=== PATIENT | female | born 1985 | race Hispanic/Latino ===

== ENCOUNTER 2021-09-12 21:19 | Inpatient (IN) | payer OTHER, SELFPAY ==
[2021-09-12] MEDS ORDERED: hydrALAZINE 20 MG/ML VIAL SLOW IVP PRN (21:52)
[2021-09-13] MEDS ORDERED: Bicitra 30 ML UDCUP PO PRN (00:08)
[2021-09-13] MEDS ORDERED: Acetaminophen 500 MG TAB PO PRN (00:08)
[2021-09-13] MEDS ORDERED: Ondansetron PF 4 MG/2 ML Vial IVP PRN ×3 (00:08→05:14)
[2021-09-13] MEDS ORDERED: Famotidine/PF 20 mg/2ml Vial SLOW IVP PRN (00:08)
[2021-09-13] MEDS ORDERED: Promethazine HCl 25 MG/ML VIAL IM PRN ×2 (00:08→02:12)
[2021-09-13] MEDS ORDERED: hydrALAZINE 20 MG/ML VIAL SLOW IVP PRN ×2 (00:08→05:14)
[2021-09-13] MEDS ORDERED: ceFAZolin 2 GM/Dextrose 50 ML IVPB ONE (00:13)
[2021-09-13] MEDS ORDERED: ceFAZolin 2 GM/Dextrose 50 ML 2 GM in Premix Bag 1 BAG IVPB SCH (00:15)
[2021-09-13 00:25] VITALS: BMI 42.1
[2021-09-13 00:33] LABS: Hemoglobin 12.9 g/dL (12.0-15.5); Mean Corpuscular HGB CONC 34.3 g/dL (32.0-36.0); Mean Corpuscular Hemoglobin 30.9 pg (27.0-33.0); Mean Platelet Volume 12.4 fl (7.4-10.4); Platelet Count 221 10x3/uL (150-450); RBC Distribution Width 13.6 % (11.5-14.5); Red Blood Cell (RBC) Count 4.18 10x6/uL (3.90-5.03); White Blood Cell (WBC) Count 9.6 10x3/uL (3.5-10.5)
[2021-09-13] MEDS ORDERED: Azithromycin 500 MG VIAL ONE (00:41)
[2021-09-13] MEDS ORDERED: Fentanyl 100 MCG/2 ML VIAL ONE (00:46)
[2021-09-13] MEDS ORDERED: Morphine PF 10 MG/10 ML VIAL ONE (00:46)
[2021-09-13] MEDS ORDERED: Lactated Ringer's 1,000 ML IV SCH (01:00)
[2021-09-13] MEDS ORDERED: ePHEDrine Sulfate 50 MG/10 ML VIAL ONE (01:03)
[2021-09-13 01:08] LABS: Syphilis Antibody Nonreactive (Nonreactive); Syphilis Antibody Index 0.06 S/CO (<1.00 Non-Reactive)
[2021-09-13 01:09] LABS: Hep B Surf Ag Non-Reactive S/CO (NonReactive)
[2021-09-13 01:17] LABS: HBSAg Index 0.14 S/CO (0-0.99)
[2021-09-13] MEDS ORDERED: Ondansetron PF 4 MG/2 ML Vial ONE (01:18)
[2021-09-13] MEDS ORDERED: Promethazine HCl 25 MG/ML VIAL ONE (01:18)
[2021-09-13] MEDS ORDERED: Oxytocin 10 UNITS/ML VIAL ONE (01:18)
[2021-09-13] MEDS ORDERED: Ketorolac Tromethamine 30 MG/ML VIAL ONE (01:18)
[2021-09-13] MEDS ORDERED: HYDROmorphone 2 MG/ML VIAL SLOW IVP PRN (02:12)
[2021-09-13] MEDS ORDERED: Ketorolac Tromethamine 30 MG/ML VIAL IVP PRN (02:12)
[2021-09-13] MEDS ORDERED: Moisturizing Cream (Eucerin) 113 GM JAR TOP PRN (02:12)
[2021-09-13] MEDS ORDERED: Promethazine HCl 25 MG SUPP PR PRN (02:12)
[2021-09-13] MEDS ORDERED: diphenhydrAMINE 50 MG/ML VIAL IVP PRN (02:12)
[2021-09-13] MEDS ORDERED: Meperidine HCl/PF 25 MG/ML VIAL SLOW IVP PRN (02:12)
[2021-09-13] MEDS ORDERED: Naloxone HCl 0.4 mg/ml Vial IVP PRN ×2 (02:12)
[2021-09-13] MEDS ORDERED: Naloxone HCl 0.4 mg/ml Vial IV PRN (02:12)
[2021-09-13] MEDS ORDERED: Fentanyl 100 MCG/2 ML VIAL SLOW IVP PRN (02:12)
[2021-09-13] MEDS ORDERED: Ondansetron HCl/PF 4 MG/2 ML Vial IVP PRN (02:12)
[2021-09-13] MEDS ORDERED: Communication Order-Pharmacy FS SCH (02:15)
[2021-09-13 04:35] LABS: SARS-CoV-2 NAA Rapid Test Not Detected (NotDetected)
[2021-09-13] MEDS ORDERED: Boostrix 0.5 ML (Tdap) VIAL IM ONE (05:14)
[2021-09-13] MEDS ORDERED: Simethicone Chewable 80 MG TAB PO PRN (05:14)
[2021-09-13] MEDS ORDERED: Lanolin Ointment 7 GM TUBE TOP PRN (05:14)
[2021-09-13] MEDS ORDERED: Misoprostol 200 MCG TAB PR PRN (05:14)
[2021-09-13] MEDS ORDERED: NS w/ Oxytocin 30 units 500 ML ONE (05:20)
[2021-09-13] MEDS ORDERED: NS w/ Oxytocin 30 units 500 ML IV SCH (06:00)
[2021-09-13] MEDS: Ferrous Sulfate 325 MG TAB PO SCH ×2 (07:57→21:26)
[2021-09-13] MEDS: Prenatal Vitamin 1 TAB PO SCH (07:57)
[2021-09-13] MEDS ORDERED: HYDROcodone/Acetaminophen 5/325 mg Tablet PO PRN (15:18)
[2021-09-13] MEDS: ceFAZolin 2 GM/Dextrose 50 ML 2 GM in Premix Bag 1 BAG IVPB SCH (16:59)
[2021-09-13] MEDS: metroNIDAZOLE 500 MG in Premix Bag 1 BAG IVPB SCH (16:59)
[2021-09-14] MEDS: metroNIDAZOLE 500 MG in Premix Bag 1 BAG IVPB SCH ×4 (00:35→23:52)
[2021-09-14] MEDS: HYDROcodone/Acetaminophen 5/325 mg Tablet PO PRN ×2 (00:35→20:23)
[2021-09-14] MEDS: ceFAZolin 2 GM/Dextrose 50 ML 2 GM in Premix Bag 1 BAG IVPB SCH ×4 (00:36→23:52)
[2021-09-14 03:49] LABS: Hemoglobin 10.7 g/dL (12.0-15.5); Mean Corpuscular HGB CONC 34.5 g/dL (32.0-36.0); Mean Corpuscular Hemoglobin 31.2 pg (27.0-33.0); Mean Corpuscular Volume 90.4 fl (81.6-98.3); Mean Platelet Volume 12.2 fl (7.4-10.4); Platelet Count 179 10x3/uL (150-450); RBC Distribution Width 13.8 % (11.5-14.5); Red Blood Cell (RBC) Count 3.43 10x6/uL (3.90-5.03); White Blood Cell (WBC) Count 9.6 10x3/uL (3.5-10.5)
[2021-09-14] MEDS: Ibuprofen 800 MG TAB PO SCH ×3 (05:31→21:27)
[2021-09-14] MEDS: Ferrous Sulfate 325 MG TAB PO SCH ×2 (08:29→20:20)
[2021-09-14] MEDS: Prenatal Vitamin 1 TAB PO SCH (08:31)
[2021-09-15] MEDS: Ibuprofen 800 MG TAB PO SCH (05:18)
[2021-09-15 07:22] VITALS: BP 102/54; TEMP 98.4
[2021-09-15] MEDS: Ferrous Sulfate 325 MG TAB PO SCH (08:18)
[2021-09-15] MEDS: metroNIDAZOLE 500 MG in Premix Bag 1 BAG IVPB SCH (08:26)
[2021-09-15] MEDS: ceFAZolin 2 GM/Dextrose 50 ML 2 GM in Premix Bag 1 BAG IVPB SCH (08:26)
[2021-09-15] MEDS: Prenatal Vitamin 1 TAB PO SCH (09:12)
== END 2021-09-15 10:08 | disposition home or self-care (01) | DRG 788 ==
LOC: CSHLD/OP 21:19 → CSHLD 09-13 00:25 → CSHPP 09-13 04:55
PROVIDERS: ADMIT Family Medicine; ATTEND Family Medicine
PROC: 10D00Z1 Extraction of Products of Conception, Low, Open Approach (ICD-10-PCS; principal; 2021-09-13)
PROC: 0UN90ZZ Release Uterus, Open Approach (ICD-10-PCS; 2021-09-13)
DX: O34.211 Maternal care for low transverse scar from previous cesarean delivery (principal); N73.6 Female pelvic peritoneal adhesions (postinfective); O99.892 Other specified diseases and conditions complicating childbirth; Z37.0 Single live birth; Z3A.38 38 weeks gestation of pregnancy; Z79.899 Other long term (current) drug therapy; Z20.822 Contact with and (suspected) exposure to COVID-19
CPT/HCPCS: 36415; 85027; 86780; 86850; 86900; 86901; 87340; 99285; J0690; J1885; J2274; J2405; J2550; J2590; J3010; U0002